=== PATIENT | female | born 2000 | race Caucasian/White ===

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

== ENCOUNTER 2019-08-08 05:28 | Outpatient (CLI) | payer OTHER, BC ==
[~2019-08-08] VITALS: Ht 162.6 cm; Wt 65.9 kg
[2019-08-08] MEDS ORDERED: DULO30CA49 PO (10:15)
== END 2019-08-08 10:23 | disposition home or self-care (01) ==
LOC: PREOP 05:28
PROVIDERS: ATTEND Otolaryngology Otolaryngology/Facial Plastic Surgery
DX: Z01.818 Encounter for other preprocedural examination (principal)

== ENCOUNTER 2019-08-11 06:44 | Day surgery (SDC) | payer BC, OTHER ==
[~2019-08-11] VITALS: Ht 162.6 cm; Wt 65.9 kg
[2019-08-11] VITALS (10 sets, daily range): BP systolic 101–127; BP diastolic 51–70
[~2019-08-11 06:44] MED LIST changes: +DULO30CA49 PO
[2019-08-11] MEDS ORDERED: LACTATED RINGERS 1,000 ML IV PRN (06:50)
--- NOTE | 2019-08-11 07:01 | Progress Note-Pre Operative ---
Pre-Operative Progress Note H&P Reviewed The H&P was reviewed, patient examined and no changes noted. Date Seen by Provider: Aug 11, 2019 Time Seen by Provider: 07:00 Date H&P Reviewed: Aug 11, 2019 Time H&P Reviewed: 07:00 Pre-Operative Diagnosis: Displaced Nasal Fracture ALFRED RODRIGUEZ MD Aug 11, 2019 07:01
[2019-08-11] MEDS ORDERED: COCAINE HCL 4% 2 ML SYR ONE (07:12)
[2019-08-11] MEDS ORDERED: LIDOCAINE PF 2% 5 ML (XYLOCAINE) VIAL ONE (07:12)
[2019-08-11] MEDS ORDERED: PHENYLEPHRINE 0.5% NASAL SPR (NEO-SYNEPHRINE) REG ONE (07:12)
[2019-08-11] MEDS ORDERED: proPOfol 200 MG/20 ML (DIPRIVAN) VIAL IV ONE (07:12)
[2019-08-11] MEDS ORDERED: DEXAMETHASONE 10 MG/ML (DECADRON) 1 ML VIAL ONE (07:12)
[2019-08-11] MEDS ORDERED: SEVOFLURANE (ULTANE) 15 ML INHAL SOLN ONE (07:12)
[2019-08-11] MEDS ORDERED: PHENYLEPHRINE 0.25% NASAL SPR (NEO-SYNEPHRINE) 15 ML NS ONE (07:12)
[2019-08-11] MEDS ORDERED: fentaNYL INJECTION 100 MCG/2 ML AMP ONE (07:12)
[2019-08-11] MEDS ORDERED: ONDANSETRON 4 MG/2 ML (SDV) Z0FRAN ONE ×2 (07:12→07:30)
[2019-08-11] MEDS ORDERED: LIDOCAINE/EPI 1%-1:100,000 (XYLOCAINE) 20ML ONE (07:13)
[2019-08-11] MEDS ORDERED: MUPIROCIN 2% OINT 22 GM (BACTROBAN) TUBE ONE (07:13)
[2019-08-11] MEDS ORDERED: MIDAZOLAM 2 MG/2 ML (VERSED) VIAL ONE ×2 (07:30→07:37)
[2019-08-11] MEDS ORDERED: ONDANSETRON 4 MG/2 ML (SDV) Z0FRAN IV ONE (07:45)
[2019-08-11] MEDS ORDERED: MIDAZOLAM 2 MG/2 ML (VERSED) VIAL IV ONE (07:45)
[2019-08-11] MEDS ORDERED: NS IV 1000 ML 1,000 ML IV SCH (08:31)
--- NOTE | 2019-08-11 08:31 | Progress Note-Post Operative ---
Post-Operative Progess Note Surgeon (s)/Ticket Collector Or Usher (s) Surgeon ALFRED RODRIGUEZ MD Ticket Collector Or Usher n/a Pre-Operative Diagnosis Displaced Nasal Fracture Post-Operative Diagnosis same Post-Op Procedure Note Date of Procedure: Aug 11, 2019 Name of Procedure Performed: Closed REduction of Nasal Fracture Description & Findings Description and Findings: n/a Anesthesia Type lma Estimated Blood Loss minimal Packing none. Specimen(s) collected/removed none ALFRED RODRIGUEZ MD Aug 11, 2019 08:31
[2019-08-11] MEDS ORDERED: MEPERIDINE (DEMEROL) INJ 50 MG/ML IVP ONE (08:45)
[2019-08-11] MEDS ORDERED: ONDANSETRON 4 MG/2 ML (SDV) Z0FRAN IVP PRN (08:45)
[2019-08-11] MEDS ORDERED: HYDROcodone/APAP 5 MG/325 MG (LORTAB) TAB PO PRN (08:45)
[2019-08-11] MEDS ORDERED: morphine INJ 10 MG/ML 1ML (SYR OR VIAL) IVP ONE (08:45)
[2019-08-11] MEDS ORDERED: HYDROmorphone 2 MG/ML VIAL (DILAUDID) IV ONE (08:45)
[2019-08-11] MEDS ORDERED: APAP 325 MG/10.15 ML LIQ (TYLENOL) UDC PO PRN (08:45)
[2019-08-11] MEDS ORDERED: HYDR-3812 PO (09:36)
--- NOTE | 2019-08-11 10:37 | Anesthesia-General Post-Op ---
General Patient Condition Mental Status/LOC: Same as Preop Cardiovascular: Satisfactory Nausea/Vomiting: Absent Respiratory: Satisfactory Pain: Controlled Complications: Absent Post Op Complications Complications None Follow Up Care/Instructions Patient Instructions None needed. Anesthesia/Patient Condition Patient Condition Patient is doing well, no complaints, stable vital signs, no apparent adverse anesthesia problems. No complications reported per nursing. JASMYNE CESPEDES CRNA Aug 11, 2019 10:37
== END 2019-08-11 10:20 | disposition home or self-care (01) ==
LOC: SDC 06:44
PROVIDERS: ATTEND Otolaryngology Otolaryngology/Facial Plastic Surgery
DX: S02.2XXA Fracture of nasal bones, initial encounter for closed fracture (principal); F17.200 Nicotine dependence, unspecified, uncomplicated; Z79.899 Other long term (current) drug therapy; Z88.0 Allergy status to penicillin
CPT/HCPCS: 84703; 87081